=== PATIENT | female | born 1945 | race Caucasian/White ===

== ENCOUNTER 2017-01-16 00:46 | Inpatient (IN) | payer MEDICARE ==
[2017-01-16] VITALS (19 sets, daily range): BP systolic 98–115; BP diastolic 53–86; PULSE 61–91; RESP 13–25; TEMP 97.4–98.6; O2SAT 93–100
[2017-01-16] MEDS ORDERED: SODIUM CHLOR 0.9% 1000 ML INJ 1,000 ML IV ONE (01:16)
[2017-01-16] MEDS ORDERED: NITROGLYCERIN 0.4 MG SL 25 TABS/BTL SL STA (01:16)
[2017-01-16] MEDS ORDERED: HEPARIN SODIUM - IV 10,000 UNITS/10 ML VIAL IV STA (01:16)
[2017-01-16] MEDS ORDERED: ASPIRIN 81 MG CHEW TAB PO STA (01:16)
[2017-01-16] MEDS ORDERED: ONDANSETRON HCL 4 MG/2 ML VIAL ONE ×2 (01:24→02:41)
--- NOTE | 2017-01-16 01:28 | PD ---
HPI Chief Complaint: Chest Pain Time Seen by Provider: 01:18 Travel History International Travel<30 days: No Contact w/Intl Traveler<30days: No Traveled to known affect area: No History of Present Illness HPI The patient is a 71-year-old female with no known history of heart disease who complains of a heaviness in her substernal region beginning approximately 9 PM tonight. The pain is constant. The patient also states she has had indigestion sometime after lunch which has persisted. She does have nausea, diaphoresis and shortness of breath and she has a unusual sensation in the bottom of her mouth but no other radiation of pain. She does not have any history of elevated cholesterol, hypertension, diabetes and she does not smoke. [facility] Social History Tobacco Use: No Allergies-Medications (Allergen,Severity, Reaction): Coded Allergies: No Known Allergies (Unverified , 01/16/17) Review of Systems Except as stated in HPI: all other systems reviewed are Neg Physical Exam Narrative GENERAL: The patient is alert, oriented 3, extremely anxious and moderate to severe distress with her chest discomfort. Her vital signs are normal. SKIN: Focused skin assessment warm/dry. HEAD: Atraumatic. Normocephalic. EYES: Pupils equal and round. No scleral icterus. No injection or drainage. ENT: No nasal bleeding or discharge. Mucous membranes pink and moist. NECK: Trachea midline. No JVD. CARDIOVASCULAR: Regular rate and rhythm. No murmur appreciated. RESPIRATORY: No accessory muscle use. Clear to auscultation. Breath sounds equal bilaterally. I cannot reproduce the patient's pain by pressing on the chest wall. GASTROINTESTINAL: Abdomen soft, non-tender, nondistended. Hepatic and splenic margins not palpable. MUSCULOSKELETAL: No obvious deformities. No clubbing. No cyanosis. No edema. NEUROLOGICAL: Awake and alert. No obvious cranial nerve deficits. Motor grossly within normal limits. Normal speech. PSYCHIATRIC: Appropriate mood and affect; insight and judgment normal. Data Data Orders Troponin I (01/16/17 01:16) Ckmb (Isoenzyme) Profile (01/16/17 01:16) Complete Blood Count With Diff (01/16/17 01:16) Basic Metabolic Panel (Bmp) (01/16/17 01:16) Magnesium (Mg) (01/16/17 01:16) Calcium (01/16/17 01:16) Prothrombin Time / Inr (Pt) (01/16/17 01:16) Act Partial Throm Time (Ptt) (01/16/17 01:16) B-Type Natriuretic Peptide (01/16/17 01:16) Chest, Single Ap (01/16/17 01:16) Electrocardiogram (01/16/17 01:16) Oxygen Administration (01/16/17 01:16) Iv Access Insert/Monitor (01/16/17:16) Oximetry (01/16/17 01:16) Sodium Chlor 0.9% 1000 Ml Inj (Ns 1000 M (01/16/17 01:16) Sodium Chloride 0.9% Flush (Ns Flush) (01/16/17 01:30) Aspirin Chew (Aspirin Chew) (01/16/17:16) Nitroglycerin Sl (Nitrostat Sl) (01/16/17 01:16) Nitroglycerin-Dextrose Inj (Nitroglyceri (01/16/17 01:30) Heparin Inj (Heparin Inj) (01/16/17 01:16) MDM Medical Decision Making Medical Screen Exam Complete: Yes Emergency Medical Condition: Yes Medical Record Reviewed: Yes Interpretation(s) The EKG shows ST elevation in leads V1, V2 and reciprocal depression in 2-3 aVF Differential Diagnosis Acute myocardial infarction, pericarditis, ventricular aneurysm, Narrative Course The patient has an acute myocardial infarction, she has ST elevation in leads V1 , V2 with reciprocal depression in 2-3 and aVF. Physician Communication Physician Communication I discussed the patient with Dr. Ponce, the patient is a STEMI alert and will be transferred at [facility]. Diagnosis Primary Impression: ST segment elevation myocardial infarction (STEMI) of anterolateral wall, subsequent to initial episode of care Admitting Information Admitting Physician Requests: Admit Ben Mendenhall MD Jan 16, 2017 01:28
[2017-01-16] MEDS ORDERED: SODIUM CHLORIDE 0.9% FLUSH 10 ML FLUSH IVF PRN (01:30)
[2017-01-16] MEDS ORDERED: NITROGLYCERIN-DEXTROSE INJ 250 ML IV SCH (01:30)
[2017-01-16 01:31] LABS: AUTOMATED NEUTROPHIL # 5.1 TH/MM3 (1.8-7.7); BASOPHIL % 0.5 % (0.0-2.0); EOSINOPHIL # 0.3 TH/MM3 (0-0.4); EOSINOPHIL % 3.6 % (0.0-4.0); HEMATOCRIT 40.7 % (35.0-46.0); LYMPH % 31.9 % (9.0-44.0); LYMPHOCYTE # 2.8 TH/MM3 (1.0-4.8); MEAN CELL VOLUME 84.8 FL (80.0-100.0); MEAN CORPUSCULAR HEMOGLOBIN 28.6 PG (27.0-34.0); MEAN CORPUSCULAR HGB CONC 33.8 % (32.0-36.0); MONO % 6.2 % (0.0-8.0); NEUT % 57.8 % (16.0-70.0); PLATELET COUNT 212 TH/MM3 (150-450); RED CELL DISTRIBUTION WIDTH 12.4 % (11.6-17.2); WHITE BLOOD COUNT 8.7 TH/MM3 (4.0-11.0)
[2017-01-16 01:32] LABS: HEMO FLAGS DIFF FINAL
[2017-01-16 01:39] LABS: POTASSIUM 3.8 MEQ/L (3.5-5.1)
[2017-01-16 01:42] LABS: BICARBONATE 26.3 MEQ/L (21.0-32.0); MAGNESIUM 2.3 MG/DL (1.5-2.5)
[2017-01-16 01:43] LABS: APTT (PATIENT) 24.1 SEC (24.3-30.1); INTERNATIONAL NORMALIZED RATIO 0.9 RATIO; PROTHROMBIN TIME - PATIENT 10.4 SEC (9.8-11.6)
[2017-01-16] MEDS ORDERED: HEPARIN-NS/PF INJ 500 ML ONE (01:54)
--- NOTE | 2017-01-16 02:00 | RADRPT ---
EXAM DATE/TIME: 01/16/2017 01:19 [place] COMPARISON: No previous studies available for comparison. INDICATIONS : Chest pain. Stemi alert. MEDICAL HISTORY : Unable to obtain. SURGICAL HISTORY : Unable to obtain. ENCOUNTER: Initial ACUITY: 1 day PAIN SCORE: 10/10 LOCATION: Bilateral chest FINDINGS: A single frontal view of the chest demonstrates diffuse acinar densities in both lungs suggesting pul monary edema. No definite peribronchial thickening. No focal areas of consolidation seen. The hear t is normal in size. Both hemidiaphragms well delineated. CONCLUSION: Diffuse bilateral acinar densities suggest pulmonary edema. Eder Randhawa MD on January 16, 2017 at 1:58 Board Certified Radiologist. This report was verified electronically.
[2017-01-16] MEDS ORDERED: MIDAZOLAM HCL 2 MG/2 ML VIAL ONE ×2 (02:09→02:41)
[2017-01-16] MEDS ORDERED: BIVALIRUDIN 250 MG VIAL ONE ×2 (02:18→02:54)
[2017-01-16] MEDS ORDERED: TICAGRELOR 90 MG TAB PO ONE ×2 (02:38→03:00)
[2017-01-16] MEDS ORDERED: NALOXONE HCL 0.4 MG/ML AMP ONE (02:42)
[2017-01-16] MEDS ORDERED: FLUMAZENIL 1 MG/10 ML VIAL ONE (02:42)
[2017-01-16] MEDS ORDERED: BIVALIRUDIN INJ 250 MG in SODIUM CHLORIDE 0.9% INJ 50 ML IV SCH (02:57)
[2017-01-16] MEDS ORDERED: ONDANSETRON HCL 4 MG/2 ML VIAL IV PRN (03:00)
[2017-01-16] MEDS ORDERED: ATROPINE SULFATE 1 MG/ML VIAL IV PRN (03:00)
[2017-01-16] MEDS ORDERED: MISC INFORMATION XX ONE (03:00)
--- NOTE | 2017-01-16 03:13 | CATHPROC ---
[email or web address] HIS Report Study Information Study Number Admission Scheduled Start Study Start [id number] Jan 16 2017 12:46AM 01/16/2017 Jan 16 2017 1:51AM [place] [facility] Cardiac Catheterization Admit Source Facility Department Emergency department [facility] Equipment Operator Physician and Clinical Staff Initial MD Bustillos, Endy Beef Pluck Trimmer Kris Patel,PARMJIT Other cathlab, cathlab Recorder Margarette Hung,ACCOUNTING SUPERVISOR TECH2 Scrub Dominic Manuel RCIS(BS) X-Ray Johnnie Jaeger,RT(R) Procedures Performed Procedure Location (Site) Vessel Name Coronary Angiograms LCA Left Coronary Coronary Angiograms RCA Right Coronary Drug Eluting Inflatio LAD Prox Left Coronary L Heart Cath LV Gram-hand inj. LV LV Ventricle PTCA LAD Prox Left Coronary Wire insertion Fem Art (right) Femoral Art Equipment Time Title Clerk Automobile Description Size Mfg Part Number Used/Scraped PERCLOSE, PRO GLIDE CLOSER 02:38 [employer] FR 6 [id number] *[id number] Used DEVICE PERCLOSE, PRO GLIDE CLOSER 02:38 [employer] FR 6 [id number] *[id number] Used DEVICE TRANSDUCER, TRUWAVE [id number] 02:13 MURDOCK DENISE * Used W/STOCKCOCK *[id number]- INTRODUCER SET, 02:13 [employer]. FR 5 SC-NT-U-SST Used MICROPUNCTURE, STIFFENED *[id number] *[id number] *[id number] 02:13 [employer] INDUSTRIES PACK, CCL CUSTOM * Used *[id number] 02:26 MEDTRONIC BALLOON, 2.5 X 12MM EUPHORA 12MM Used *[id number] STENT, 2.5 18 RESOLUTE [id number] 02:28 MEDTRONIC 2.5 18 Used INTEGRITY RX *[id number] STENT, 2.5 8 RESOLUTE [id number] 02:35 MEDTRONIC 2.5 8 Used INTEGRITY RX *[id number] 02:27 [employer] MEDICAL 30 SONIA INDEFLATOR Used *[id number] 02:13 [employer] MEDICAL WIRE, 3MMJ .035 180CM 180CM Used *[id number] 02:13 NAMIC MANIFOLD, 4 PORT * Used *[id number] 02:13 NYCOMED OMNIPAQUE, 350 MG, 150ML 150ML [id number] Used [id number] 02:13 [employer]A MEDICAL BLANKET,WARM AIR CCL * Used *[id number] 02:13 TERUMO MEDICAL SHEATH, FR5 TERUMO (10CM) FR 5 [id number] Used 02:14 TERUMO MEDICAL SHEATH, FR6 TERUMO (10CM) FR 6 [id number] Used WIRE, RUNTHROUGH NS FLOPPY [id number] 02:22 TERUMO MEDICAL 180CM Used .014 180CM *[id number] WIRE, RUNTHROUGH NS FLOPPY [id number] 02:23 TERUMO MEDICAL 180CM Used .014 180CM *[id number] Equipment Model, Serial, Lot Number and Expiration Data Description Model Number Serial Number Lot Number Expiration Date STENT, 2.5 18 RESOLUTE [id number] 05-10-2018 INTEGRITY RX STENT, 2.5 8 RESOLUTE [id number] 09-21-2018 INTEGRITY RX History: Allergies Allergy Reaction No Known Allergies History: Symptoms/Diagnosis Selection Items Angina-unstable SOB History: Other Current Smoker No Labs Hgb (g/dl) Hct (%) RBC (MIL/MM3) WBC (l/cumm) Platelets (thousands) 11.60-17.00 35.00-51.00 4.00-5.90 4.00-11.00 150.00-450.00 13.7 40.7 4.8 8.7 212 Glucose (mg/dl) BUN (mg/dl) 74.00-106.00 7.00-18.00 117 27 Na (meq/l) K (meq/l) Cl (meq/l) CO2 (mmol/L) Ca (mg/dl) 136.00-145.00 3.50-5.10 98.00-107.00 21.00-32.00 8.50-10.10 145 3.8 109 26.3 9.3 PT (sec) PTT (sec) INR (PTT:PT) 9.80-11.60 24.30-30.10 0.90-1.10 10.4 10.4 0.9 Troponin I (ng/ml) 0.02-0.05 0.02 Medication Medication Total Dose (Bolus/Oral) Medication Total Dosage/Unit 1% XYLOCAINE 20 mL ANGIOMAX BOLUS 12 mL BRILINTA 180 mg FENTANYL 50 mcg NARCAN 0.4 mg OXYGEN 2 l/min ROMAZICON IV 0.2 mg VERSED 1 mg ZOFRAN 4 mg Medications (Bolus/Oral) Medication Time Given Dosage/Unit Administered By Reason VERSED 01/16/2017 2:10:11 AM 1 mg Kirs Patel 1 mg VERSED given in lab by Kris Patel RN in Left Antecubital via Peripheral IV. Ordered by Endy Bernstein. FENTANYL 01/16/2017 2:11:12 AM 25 mcg Kris Patel 25 mcg FENTANYL given in lab by Kris Patel RN in Left Antecubital via Peripheral IV. Ordered by Endy Bustillos. 1% XYLOCAINE 01/16/2017 2:12:45 AM 20 mL Endy Bustillos 20 mL 1% XYLOCAINE given in lab by Endy Bustillos in Right Groin via Subcutaneous. Ordered by Endy Bernstein. ROMAZICON IV 01/16/2017 2:15:29 AM 0.2 mg Kris Patel 0.2 mg ROMAZICON IV given in lab by Kris Patel RN in Right Antecubital via Peripheral IV. Ordere d by Endy Bustillos. NARCAN 01/16/2017 2:16:33 AM 0.4 mg Kris Patel 0.4 mg NARCAN given in lab by Kris Patel RN via Peripheral IV. Ordered by Endy Bustillos. OXYGEN 01/16/2017 2:18:16 AM 2 l/min Kris Patel 2 l/min OXYGEN given in lab by Kris Patel RN via Nasal. Ordered by Endy Bustillos. ANGIOMAX BOLUS 01/16/2017 2:22:08 AM 12 mL Kris Patel 12 mL ANGIOMAX BOLUS given in lab by Kris Patel RN in Right Antecubital via Peripheral IV. Order ed by Endy Bustillos. FENTANYL 01/16/2017 2:25:53 AM 25 mcg Kris Patel 25 mcg FENTANYL given in lab by Kris Patel RN in Left Antecubital via Peripheral IV. Ordered by Endy Bustillos. ZOFRAN 01/16/2017 2:41:38 AM 4 mg Kris Patel 4 mg ZOFRAN given in lab by Kris Patel RN in Right Antecubital via Central IV. Ordered by Endy Gonzales. BRILINTA 01/16/2017 2:56:03 AM 180 mg Kris Patel 180 mg BRILINTA given in lab by Kris Patel, PARMJIT. Ordered by Endy Bustillos. Medication (Drip) Medication Time Given Dosage/Unit Concentration/Unit Diluent (ml) Solution ANGIOMAX DRIP 01/16/2017 2:24:10 AM 1.75 mg/kg/hr 250 mg 50 NaCl .9 1.75 mg/kg/hr ANGIOMAX DRIP given in lab by Kris Patel RN in Right Antecubital via Peripheral IV . Pump/Drip Flow = 27.76 ml/hr using NaCl .9 with a concentration of 250 mg in 50 ml. Ordered by Endy Bustillos. IV Solutions 01/16/2017 2:07:31 AM 0 mL (IV) 500 NaCl .9 IV Solutions given in lab by Kris Patel RN in Left Antecubital via Peripheral IV. Pump/Drip Flow = 20 ml/hr using NaCl .9. Ordered by Endy Bustillos. Initial Case Assessment Cardiovascular HR NIBP 75 128/85 Edema Present Skin color Skin None Normal Warm Dry Neurological State Oriented to time-place- Alert Moves all extremities person Respiration - General Respiration Rate SpO2 (%) (B/min) 13 95 Chronological Log Time Study Chronological Log 2:00:24 Patient arrived via Bed. 2:00:26 Consent signed by the physician and the patient and verified by the [facility] Equipment Operator staff. 2:00:27 Patient Name, D.O.B, / Armband Verified By R.N. 2:00:28 Pre-op and post- op instructions given; patient acknowledges understanding of instructions. Vitals capture started with the following parameters, Patient=Adult, Interval=5 min, Initial Pre dsult=506 mmHg, 2:05:41 Deflation Rate=5 mmHg 2:06:16 HR=67 bpm, UBXW=578/85 mmhg, SpO2=97.0 %, Resp=13 B/min, Pain=8, Joshua=10, Leonard=2 2:07:23 Patient has been NPO for More than 6Hrs. 2:07:24 no Skin Breakdown- 2:07:26 Patient Warmer Placed on the Table. 2:07:27 Disposable Defibrillator Pads Placed On Patient. 2:07:29 Ariel Prominences Protected 2:07:30 A # 20 IV was noted in the Antecubital (right). Grade = 0 2:07:31 A # 20 IV was noted in the Antecubital (left). Grade = 0 IV Solutions given in lab by Kris Patel RN in Left Antecubital via Peripheral IV. Pump/Drip Flow = 20 ml/hr using 2:07:31 NaCl .9. Ordered by Endy Bustillos. 2:07:31 History and physical on the chart or being dictated. Assessment: Initial Case, HR=75 BPM, MPCG=332/85 mmhg, Edema=None, Color=Normal, Skin = Warm, Dr y 2:07:32 Neurological: State=Alert, Ox3, ALCANTAR Respiration: Resp=13 B/min, SpO2=95 % 2:08:08 Bilateral groins prepped with 2% chlorhexidine, and with a 3 min. waiting time. 2:08:19 HR=86 bpm, RLYO=160/74 mmhg, SpO2=95.0 %, Resp=12 B/min, Pain=8, Joshua=10, Leonard=2 2:09:40 Reference ECG taken 2:10:11 1 mg VERSED given in lab by Kris Patel, RN in Left Antecubital via Peripheral IV. Ordere d by Endy Bustillos. 2:10:18 HR=66 bpm, JVPA=377/78 mmhg, SpO2=96.0 %, Resp=16 B/min, Pain=8, Joshua=10, Leonard=2 Time Out. Correct patient, correct procedure,correct physician, ,power injector loaded or not lo aded with contrast with 2:11:03 surgical team present. Time Out Concurred by MD, individual staff and CLINICAL ABSTRACTOR in procedure 2:11:05 Case Start 2:11:12 25 mcg FENTANYL given in lab by Kris Patel RN in Left Antecubital via Peripheral IV. Or dered by Endy Bustillos. 2:12:04 Pressure channel 1 zeroed. 2:12:17 HR=76 bpm, KMUK=919/88 mmhg, SpO2=98.0 %, Resp=12 B/min, Pain=8, Joshua=10, Leonard=2 20 mL 1% XYLOCAINE given in lab by Endy Bustillos in Right Groin via Subcutaneous. Ordered by Tressa, 2:12:45 Endy. 2:12:52 Access site was Right Femoral Artery. A INTRODUCER SET, MICROPUNCTURE, STIFFENED FR 5 was advanced into the Fem Art (right) using the Modified 2:13:15 Seldinger technique. A SHEATH, FR6 TERUMO (10CM) FR 6 was exchanged in the Fem Art (right). This was necessary in ord er to achieve 2:13:21 vascular hemostasis. 2:14:20 HR=81 bpm, RZPV=543/75 mmhg, SpO2=87.0 %, Resp=13 B/min 2:14:20 An injection in the Fem Art (right) was made through the SHEATH, FR6 TERUMO (10CM) FR 6. 2:14:34 A JR 4.0 INFINITI CATHETER FR 6 was advanced over a wire. contrast was used for injections. 0.2 mg ROMAZICON IV given in lab by Kris Patel RN in Right Antecubital via Peripheral IV. O rdered by Tressa, 2:15:29 Endy. 2:16:19 HR=80 bpm, VGMO=742/74 mmhg, SpO2=83.0 %, Resp=15 B/min, Pain=8, Joshua=10, Leonard=2 Recorded Pressure: LV, HR=80, Condition=Condition 1 2:16:19 (Left Ventricle) LV 125/21/28 2:16:33 0.4 mg NARCAN given in lab by Kris Patel, PARMJIT via Peripheral IV. Ordered by Elaine Bustillos edro. 2:16:33 The LV was manually injected with 10 cc's and visualized. OMNIPAQUE, 350 MG, 150ML 150ML use d. Recorded Pressure: LV, Ao, HR=74, Condition=Condition 1 2:16:40 (Left Ventricle) LV 129/22/35, (Aorta) Ao 127/79/101 2:17:28 The RCA was injected and visualized at various angles. OMNIPAQUE, 350 MG, 150ML 150ML used. 2:17:40 Catheter was removed A XB 3.5 GUIDE CATHETER FR 6 was advanced over a wire. OMNIPAQUE, 350 MG, 150ML 150ML was used f or 2:17:41 injections. 2:18:15 HR=81 bpm, GTVV=445/80 mmhg, SpO2=87.0 %, Resp=13 B/min, Pain=8, Joshua=10, Leonard=2 2:18:16 2 l/min OXYGEN given in lab by Kris Patel, PARMJIT via Nasal. Ordered by Ponce-Ruy Loro. 2:19:37 The LCA was injected and visualized at various angles. OMNIPAQUE, 350 MG, 150ML 150ML used. Recorded Pressure: Ao, HR=76, Condition=Condition 1 2:19:46 (Aorta) Ao 98/53/71 2:20:18 HR=78 bpm, BYLB=723/82 mmhg, SpO2=96.0 %, Resp=17 B/min, Pain=8, Joshua=10, Leonard=2 2:20:24 A WIRE, RUNTHROUGH NS FLOPPY .014 180CM 180CM was inserted via Fem Art (right). 12 mL ANGIOMAX BOLUS given in lab by Kris Patel, PARMJIT in Right Antecubital via Peripheral IV. Ordered by Ponce- 2:22:08 Wally, Endy. 2:22:17 HR=72 bpm, YAGS=407/80 mmhg, SpO2=96.0 %, Resp=16 B/min, Pain=8, Joshua=10, Leonard=2 2:22:26 Interventional wire has crossed the lesion 2:23:33 A WIRE, RUNTHROUGH NS FLOPPY .014 180CM 180CM was inserted via Fem Art (right). 1.75 mg/kg/hr ANGIOMAX DRIP given in lab by Kris Patel, RN in Right Antecubital via Peripher al IV. Pump/Drip Flow 2:24:10 = 27.76 ml/hr using NaCl .9 with a concentration of 250 mg in 50 ml. Ordered by Terri Bustillos 2:24:18 HR=73 bpm, KGEY=706/83 mmhg, SpO2=97.0 %, Resp=15 B/min, Pain=8, Joshua=10, Leonard=2 2:25:53 25 mcg FENTANYL given in lab by Kris Patel RN in Left Antecubital via Peripheral IV. Or dered by Endy Bustillos. A BALLOON, 2.5 X 12MM EUPHORA 12MM was inserted over WIRE, RUNTHROUGH NS FLOPPY .014 180CM 180CM via 2:25:54 the LAD Prox. 2:26:21 HR=70 bpm, CVII=814/72 mmhg, SpO2=97.0 %, Resp=15 B/min, Pain=8, Joshua=10, Leonard=2 A BALLOON, 2.5 X 12MM EUPHORA 12MM over a WIRE, RUNTHROUGH NS FLOPPY .014 180CM 180CM in the LAD 2:26:50 Prox was inflated using a 30 SONIA INDEFLATOR at 10 sonia for 15 sec. 2:27:29 Balloon Removed. A STENT, 2.5 18 RESOLUTE INTEGRITY RX 2.5 18 was advanced through a XB 3.5 GUIDE CATHETER FR 6 o carli a 2:28:10 WIRE, RUNTHROUGH NS FLOPPY .014 180CM 180CM. 2:28:17 Vitals capture stopped. A STENT, 2.5 18 RESOLUTE INTEGRITY RX 2.5 18 was deployed using a 30 SONIA INDEFLATOR at 12 atmosp heres for 2:29:42 20 seconds in the LAD Prox. 2:30:09 Wire removed 2:31:43 Delivery device removed A STENT, 2.5 8 RESOLUTE INTEGRITY RX 2.5 8 was advanced through a XB 3.5 GUIDE CATHETER FR 6 ove r a WIRE, 2:34:02 RUNTHROUGH NS FLOPPY .014 180CM 180CM. A STENT, 2.5 8 RESOLUTE INTEGRITY RX 2.5 8 was deployed using a 30 SONIA INDEFLATOR at 14 atmosphe res for 20 2:35:05 seconds in the LAD Prox. 2:36:32 Delivery device removed 2:36:38 Wire removed 2:36:42 Catheter was removed 2:37:43 Catheter(s) removed without difficulty 2:37:46 PERCLOSE, PRO GLIDE CLOSER DEVICE FR 6 placement in the Fem Art (right) 2:39:51 Case End Vitals capture started with the following parameters, Patient=Adult, Interval=5 min, Initial P faanuwh=197 mmHg, 2:40:44 Deflation Rate=5 mmHg 2:41:17 Sterile dressing applied to site 2:41:18 No case complications noted. 2:41:19 Cine recording checked. 2:41:23 Bedside Report will be given. 2:41:24 HR=78 bpm, VXJP=312/54 mmhg, AeN3=457.0 %, Resp=18 B/min, Pain=8, Joshua=10, Leonard=2 2:41:26 Implantable Device card placed in patient's chart. 2:41:29 Contrast Scanned 2:41:38 4 mg ZOFRAN given in lab by Kris Patel, PARMJIT in Right Antecubital via Central IV. Ordere d by Endy Bustillos. 2:41:42 Vitals capture stopped. 2:42:02 A Left Heart Cath was performed. 2:56:03 180 mg BRILINTA given in lab by Kris Patel, PARMJIT. Ordered by Endy Bustillos. PCI QA completed: Pre-Maury - 2, Post Maury - 3, Type - ~TYPE~, Length - 24 mm, Morphology - ~MO RPHOLOGY~, 2:59:20 Indications - ~INDICATIONS~, Pre-Stenosis - 99% and Post Stenosis - 0%. 3:00:29 PCI QA obtained from Pie Cutter End Study - Contrast Media Used In Study Contrast Total Opened (mL) Total Used (mL) Total Wasted (mL) Omnipaque 130 130 0 End Study - Radiation Exposure Fluoro Time (minutes) 9.6 End Study - Patient Disposition Complications Transferred To Interventional Outcome No Telemetry Bed successful
[2017-01-16] MEDS ORDERED: FUROSEMIDE 40 MG/4 ML VIAL ONE (04:56)
[2017-01-16] MEDS ORDERED: FUROSEMIDE 40 MG/4 ML VIAL IV PUSH ONE (05:00)
--- NOTE | 2017-01-16 06:55 | MB ---
cc: LAMONT BARRAGAN DATE OF CONSULTATION 01/16/2017 DATE OF [address]-segment elevation NC. HISTORY OF PRESENT ILLNESS 72-year-old female with past medical history of hypertension, hyperthyroidism, and osteoarthritis who presented to the emergency department with complaints of acute onset of chest pressure during sleep. The patient reports the pressure is localized on the substernal region and is a pressure sensation nonradiating, associated with nausea, with no vomiting and not relieved by nitroglycerin. EKG in the emergency department revealed acute ST-segment elevation in the anterior leads, thus cardiology has been consulted for emergent PCI. REVIEW OF SYSTEMS Negative except for what is mentioned in HPI. PAST MEDICAL HISTORY Arthritis PAST SURGICAL HISTORY None FAMILY HISTORY Noncontributory ALLERGIES NO KNOWN DRUG ALLERGIES. SOCIAL HISTORY No tobacco, no alcohol. No illicit drug use. EXAMINATION VITAL SIGNS: Temperature 98, respiratory rate 18, pulse 91, blood pressure 103/ 36, O2 sat 100% with two liters nasal cannula. GENERAL: Awake, alert and oriented x3 in no acute distress. NECK: No JVD. No carotid bruits. HEART: Regular rate and rhythm. No rubs or gallops appreciated. LUNGS: Clear to auscultation bilaterally. No wheezes or rhonchi or rales. EXTREMITIES: No cyanosis or edema. Pulses throughout. DATA CBC hemoglobin 13, hematocrit 40, platelet count now 212, INR 0.9. Sodium 145, potassium 3.8, BUN 27, creatinine 1.1. BNP was 162. First set of troponins less as 0.02. EKG sinus rhythm with anterior ST elevation and reciprocal changes in the inferior leads. Chest x-ray, pulmonary edema. ASSESSMENT/PLAN 72-year-old female with cardiac risk factors that include age, hypertension, obesity who presented to the emergency department with an ST-segment elevation NC. She remains hemodynamically stable, however with ongoing chest pain. At this time, the recommendation will be to take her immediately to the cardiac laborer driver for primary PCI in the setting of a STEMI. The risks and benefits of left heart cath/PCI including but not limited to neurovascular trauma, infection , bleeding, acute kidney injury, stroke, emergent bypass surgery and have been explained to the patient. The patient understands the risks and she is willing to proceed. Thank you for the opportunity to participate in the care of this patient. Further management to be determined by the left heart cath. MD PRINCESS Brown/FLETCHER /2:09 AM /6:37 AM MTDMarta
--- NOTE | 2017-01-16 07:08 | MA ---
cc: LAMONT BARRAGAN DATE 01/16/2017 DATE OF 1945 PROCEDURE PERFORMED 1. Left heart catheterization 2. Selective right and left coronary angiography. 3. Left ventriculogram 4. Successful PCI to the proximal LAD INDICATION Anterior ST-segment elevation HI APPROACH Right transradial PROCEDURE DESCRIPTION Consent signed. The patient was taken emergently to the cardiac laborer hoisting for primary PCI in the setting of A STEMI. The right groin was prepped and draped in sterile fashion. Using 1% lidocaine for local anesthesia and a micropuncture kit, a 6-Samoan sheath was inserted into the right common femoral artery. Selective right common femoral artery angiography was performed to confirm position of the sheath. Then selective right and left coronary angiography was performed with a JR-4 diagnostic catheter and an XB 3.5 guide. Angiography was taken in multiple views. JR-4 diagnostic catheter was introduced into the ventricle over a wire. This was followed by pressure recordings, left ventriculography and pullback. We identified a culprit lesion of the STEMI at the proximal LAD. Angiomax was given for IV anticoagulation. The vessel was wired with a run-through wire. This was followed by predilation with a 2.5 x 12 and deployment of two drug-eluting stents, one a 2.5 x 18 and another one 2.5 x 8. The stent were postdilated with a stent balloon. Final angiographic views revealed good stent apposition and expansion with MARKO-III flow. The patient tolerated the procedure well without complications. Estimated blood loss less than 30 cc. Total contrast used 75 cc. The right groin access site was closed with a Perclose device. The patient was given aspirin and Brilinta after the procedure. RESULTS LEFT VENTRICLE The left ventricular pressure was 129/22 with an LVEDP of 35. The aortic pressure was 98/53 with a mean of 71. There was no gradient upon pullback from the left ventricle to the aorta. Left ventriculogram revealed hypokinesis of the anterior wall with an estimated ejection fraction of 35-40%. ANGIOGRAPHIC RESULTS 1. Right coronary artery. The right coronary is a dominant vessel. It its mid segment it has a 60% lesion, distally a 20% lesion. However, it has MARKO-III flow and no significant blockages. The PDA is patent with MARKO-III flow as well as the posterolateral branch. 2. The left main is short with nonobstructive coronary artery disease. 3. The LAD has a thrombus present in its proximal segment. The vessel has MARKO- I flow and 99% narrowing. The reminder of the vessel is mildly calcified. It tapers to a small vessel at the mid segment. It has a prominent diagonal vessel , however this one is also small and has nonobstructive coronary artery disease. 4. The left circumflex has minimal luminal irregularities, so for the most part it is patent with MARKO-III flow nonobstructive coronary artery disease. It is giving off one prominent OM branch which is patent with MARKO-III flow and nonobstructive coronary artery disease. CONCLUSION 1. Successful PCI to proximal LAD in the setting of a STEMI. 2. Elevated LVEDP. 3. LV systolic dysfunction. RECOMMENDATIONS The patient will be admitted to the CCU for post-cath care. Angiomax will be continued for the next four hours. She will be on aspirin and Brilinta as well as beta-blockers, statins, MO inhibitor as tolerated by blood pressure. She will need a 2 D Echocardiogram in the morning. MD PRINCESS Brown/FLETCHER /2:49 AM /6:57 AM ADA
[2017-01-16] MEDS: LISINOPRIL 5 MG TAB PO SCH ×2 (08:08→09:00)
[2017-01-16] MEDS: TICAGRELOR 90 MG TAB PO SCH ×2 (08:08→22:12)
[2017-01-16] MEDS: ASPIRIN 81 MG CHEW TAB PO SCH (08:08)
[2017-01-16] MEDS: METOPROLOL TARTRATE 25 MG TAB PO SCH ×2 (08:08→22:12)
[2017-01-16] MEDS ORDERED: PHENYLEPHRINE HCL 10 MG/ML VIAL ONE ×2 (09:15→09:18)
[2017-01-16] MEDS ORDERED: IOHEXOL 350 MG/ML 100 ML BTL (for Cath Lab) OTHER ONE (10:33)
[2017-01-16] MEDS ORDERED: IOHEXOL 350 MG/ML 50 ML BTL (for Cath Lab) OTHER ONE (10:33)
--- NOTE | 2017-01-16 14:06 | EKG ---
Date Performed: 01/16/2017 Time Performed: 09:50:00 PTAGE: 71 years EKG: Sinus bradycardia Nonspecific T wave changes Abnormal ECG COMPARED TO PRIOR ELECTROCARDIOGR AM, Septal infarct pattern is no longer present. ST segment depressions have resolved and T-wave inv ersions are now present. PREVIOUS TRACING : 01/16/2017 01.28 DOCTOR: Adam Chapman Interpretating Date/Time 01/16/2017 14:04:13
--- NOTE | 2017-01-16 15:41 | EKG ---
Date Performed: 01/16/2017 Time Performed: 01:28:13 PTAGE: 71 years EKG: Sinus rhythm LOW QRS VOLTAGE IN PRECORDIAL LEADS SEPTAL MYOCARDIAL INFARCTION ABNORMAL ECG NO PREVIOUS TRACING DOCTOR: Endy Bustillos Interpretating Date/Time 01/16/2017 15:39:43
--- NOTE | 2017-01-16 15:41 | EKG ---
Date Performed: 01/16/2017 Time Performed: 00:55:54 PTAGE: 71 years EKG: Sinus rhythm WITH OCCASIONAL SUPRAVENTRICULAR PREMATURE COMPLEXES LOW QRS VOLTAGE IN PRECORDIAL LEADS POSSIBLE RI GHT VENTRICULAR CONDUCTION DELAY SEPTAL MYOCARDIAL INFARCTION ACUTE NC NO PREVIOUS TRACING DOCTOR: Endy Bustillos Interpretating Date/Time 01/16/2017 15:40:27
--- NOTE | 2017-01-16 15:58 | ECHRPT ---
Indication: CONCLUSIONS The left ventricular systolic function is mildly reduced with an estimated ejection fraction in the range of 45- 50%. Hypokinetic mid-anterior wall motion. Hypokinetic mid-anterior septal wall motion. Akinetic apical a nterior wall. [id number] mitral valve regurgitation. There is mild to moderate tricuspid valve regurgitation. Mild pulmonary valve regurgitation. BP: / HR: 60 Rhythm: Sinus MEASUREMENTS (Male / Female) Normal Values Technical Quality:Good 2D ECHO LV Diastolic Diameter PLAX 4.2 cm 4.2 - 5.9 / 3.9 - 5.3 cm LV Systolic Diameter PLAX 3.2 cm IVS Diastolic Thickness 1.1 cm 0.6 - 1.0 / 0.6 - 0.9 cm LVPW Diastolic Thickness 1.1 cm 0.6 - 1.0 / 0.6 - 0.9 cm LV Relative Wall Thickness 0.5 RV Internal Dim ED PLAX 2.2 cm LVOT Diameter 1.7 cm M-MODE Aortic Root Diameter MM 2.3 cm LA Systolic Diameter MM 3.6 cm LA Ao Ratio MM 1.6 AV Cusp Separation MM 1.6 cm DOPPLER AV Peak Velocity 126.0 cm/s AV Peak Gradient 6.4 mmHg LVOT Peak Velocity 86.4 cm/s LVOT Peak Gradient 3.0 mmHg AV Area Cont Eq pk 1.6 cm MR Peak Velocity 238.0 cm/s MR Peak Gradient 22.7 mmHg Mitral E Point Velocity 80.5 cm/s Mitral A Point Velocity 74.0 cm/s Mitral E to A Ratio 1.1 LV E' Lateral Velocity 6.5 cm/s Mitral E to LV E' Lateral Ratio 12.3 LV E' Septal Velocity 5.5 cm/s Mitral E to LV E' Septal Ratio 14.7 TR Peak Velocity 284.0 cm/s TR Peak Gradient 32.3 mmHg PV Peak Velocity 80.1 cm/s PV Peak Gradient 2.6 mmHg FINDINGS LEFT VENTRICLE Normal left ventricular size. Wall thickness is measured at the upper limits of normal. The left ventricular systolic function is mildly reduced with an estimated ejection fraction in the range of 45- 50%. Hypokinetic mid-anterior wall motion. Hypokinetic mid-anterior septal wall motion. Akinetic apical anterior wall. RIGHT VENTRICLE Normal right ventricular size and systolic function. LEFT ATRIUM The left atrial size is normal. RIGHT ATRIUM The right atrial size is normal. ATRIAL SEPTUM The interatrial septum not well visualized. AORTA The aortic root and proximal ascending aorta are normal in size on limited imaging. MITRAL VALVE [id number] mitral valve regurgitation. AORTIC VALVE Trileaflet aortic valve. No aortic valve stenosis or regurgitation. TRICUSPID VALVE There is mild to moderate tricuspid valve regurgitation. The estimated pulmonary arterial pressure is 42 mmHg. PULMONARY VALVE Mild pulmonary valve regurgitation. VESSELS The inferior vena cava is normal in size. PERICARDIUM No pericardial effusion. Daniel Yepez DO (Electronically Signed) Final Date:16 January 2017 15:56
--- NOTE | 2017-01-16 16:09 | PD.CONS ---
HPI Service [facility] Consult Requested By Dr. Ponce Reason for Consult medical management Primary Care Physician Unknown Diagnoses: History of Present Illness This is a 71-year-old female past history migraine who presented with chest pain. Patient stated that yesterday night when she was laying in bed she felt like an elephant was sitting on her chest. She stated that she try to sit up hoping that pain was improved but it did not improve. Patient did have some indigestion the day before. She stated that she only had emesis which can't emergency department. Otherwise denies any nausea. Positive for diuresis at the time of occurrence. Patient was seen in emergency department down to have STEMI so had emergent cardiac catheterization done. Patient stated that after the procedure she feels great. Denies any chest pain , short his breathing, palpation, lightheadedness/dizziness. [facility] consulted for medical management. Review of Systems Constitutional: DENIES: Diaphoretic episodes, Fatigue, Fever, Weight gain, Weight loss, Chills, Dizziness, Change in appetite, Night Sweats Endocrine: DENIES: Abnorml menstrual pattern, Heat/cold intolerance, Polydipsia , Polyuria, Polyphagia Eyes: DENIES: Blurred vision, Diplopia, Eye inflammation, Eye pain, Vision loss , Photosensitivity, Double Vision Ears, nose, mouth, throat: DENIES: Tinnitus, Hearing loss, Vertigo, Nasal discharge, Oral lesions, Throat pain, Hoarseness, Ear Pain, Running Nose, Epistaxis, Sinus Pain, Toothache, Odynophagia Respiratory: DENIES: Apneas, Cough, Snoring, Wheezing, Hemoptysis, Sputum production, Shortness of breath Cardiovascular: DENIES: Chest pain, Palpitations, Syncope, Dyspnea on Exertion , PND, Lower Extremity Edema, Orthopnea, Claudication Gastrointestinal: DENIES: Abdominal pain, Black stools, Bloody stools, Constipation, Diarrhea, Nausea, Vomiting, Difficulty Swallowing, Anorexia Genitourinary: DENIES: Abnormal vaginal bleeding, Dysmenorrhea, Dyspareunia, Sexual dysfunction, Urinary frequency, Urinary incontinence, Urgency, Hematuria , Dysuria, Nocturia, Vaginal discharge Musculoskeletal: DENIES: Joint pain, Muscle aches, Stiffness, Joint Swelling, Back pain, Neck pain Integumentary: DENIES: Abnormal pigmentation, Pruritus, Rash, Nail changes, Breast masses, Breast skin changes, Nipple discharge Hematologic/lymphatic: DENIES: Bruising, Lymphadenopathy Neurologic: DENIES: Abnormal gait, Headache, Localized weakness, Paresthesias, Seizures, Speech Problems, Tremor, Poor Balance Psychiatric: DENIES: Anxiety, Confusion, Mood changes, Depression, Hallucinations, Agitation, Suicidal Ideation, Homicidal Ideation, Delusions Past Family Social History Allergies: Coded Allergies: No Known Allergies (Unverified , 01/16/17) Past Medical History Migraines Past Surgical History Right knee surgery Bilateral shoulder surgery Carpal tunnel release Reported Medications Patient is not on any home medication. Active Ordered Medications Current Medications Sodium Chloride (NS 1000 ml Inj) 1,000 ml @ 0 mls/hr Q0M ONCE IV Last administered on 01/16/17 01:29; Start 01/16/17 at 01:16; Stop 01/16/17 at 01:19 ; Status DC Sodium Chloride (NS Flush) 2 ml UNSCH PRN IVF FLUSH AFTER USING IV ACCESS; Start 01/16/17 at 01:30 Aspirin (Aspirin Chew) 324 mg NOW STAT PO Last administered on 01/16/17 01:26 ; Start 01/16/17 at 01:16; Stop 01/16/17 at 01:19; Status DC Nitroglycerin 0.4 mg 0.4 mg NOW STAT SL Last administered on 01/16/17 01:30; Start 01/16/17 at 01:16; Stop 01/16/17 at 01:19; Status DC Nitroglycerin/ Dextrose (Nitroglycerin-Dextrose Inj) 250 ml @ 0 mls/hr TITRATE IV ; Start 01/16/17 at 01:30 Heparin Sodium (Porcine) (Heparin Inj) 4,800 units NOW STAT IV Last administered on 01/16/17 01:27; Start 01/16/17 at 01:16; Stop 01/16/17 at 01:19 ; Status DC Ondansetron HCl 4 mg 4 mg STK-MED ONCE .ROUTE Last administered on 01/16/17 01 :25; Start 01/16/17 at 01:24; Stop 01/16/17 at 01:25; Status DC Heparin Sodium/ Sodium Chloride (Heparin-NS/Pf Inj) 500 ml @ As Directed STK- MED ONCE .ROUTE ; Start 01/16/17 at 01:54; Stop 01/16/17 at 01:55; Status DC Midazolam HCl (Versed Inj) 2 mg STK-MED ONCE .ROUTE Last administered on 02:09; Start 01/16/17 at 02:09; Stop 01/16/17 at 02:10; Status DC Fentanyl Citrate (fentaNYL INJ) 100 mcg STK-MED ONCE .ROUTE Last administered on 01/16/17 02:09; Start 01/16/17 at 02:09; Stop 01/16/17 at 02:10; Status DC Bivalirudin (Angiomax Inj) 250 mg STK-MED ONCE .ROUTE Last administered on 01/16 02:18; Start 01/16/17 at 02:18; Stop 01/16/17 at 02:19; Status DC Ticagrelor (Brilinta) 180 mg STK-MED ONCE PO Last administered on 01/16/17 02: 38; Start 01/16/17 at 02:38; Stop 01/16/17 at 02:39; Status DC Ondansetron HCl (Zofran Inj) 4 mg STK-MED ONCE .ROUTE Last administered on 01/16 02:41; Start 01/16/17 at 02:41; Stop 01/16/17 at 02:42; Status DC Midazolam HCl (Versed Inj) 2 mg STK-MED ONCE .ROUTE ; Start 01/16/17 at 02:41; Stop 01/16/17 at 02:42; Status DC Flumazenil (Romazicon Inj) 1 mg STK-MED ONCE .ROUTE Last administered on 02:15; Start 01/16/17 at 02:42; Stop 01/16/17 at 02:43; Status DC Naloxone HCl (Narcan Inj) 0.4 mg STK-MED ONCE .ROUTE Last administered on 02:15; Start 01/16/17 at 02:42; Stop 01/16/17 at 02:43; Status DC Bivalirudin (Angiomax Inj) 250 mg STK-MED ONCE .ROUTE ; Start 01/16/17 at 02:54 ; Stop 01/16/17 at 02:55; Status DC Aspirin (Aspirin Chew) 81 mg DAILY PO Last administered on 01/16/17 08:08; Start 01/16/17 at 09:00 Ticagrelor (Brilinta) 180 mg NOW ONCE PO ; Start 01/16/17 at 03:00; Stop at 03:06; Status DC Ticagrelor 90 mg 90 mg BID PO Last administered on 01/16/17 08:08; Start 01/16 at 09:00 Bivalirudin/ Sodium Chloride (Angiomax Inj/NS Inj) 50 ml @ 0 mls/hr Q0M IV ; Start 01/16/17 at 02:57; Stop 01/16/17 at 06:56; Status DC Miscellaneous Information 1 ONCE ONCE XX ; Start 01/16/17 at 03:00; Stop at 03:07; Status DC Atropine Sulfate (Atropine Inj) 0.5 mg UNSCH PRN IV VAGAL REPONSE; Start at 03:00 Ondansetron HCl (Zofran Inj) 4 mg Q4H PRN IV NAUSEA Last administered on 09:41; Start 01/16/17 at 03:00 Metoprolol Tartrate (Lopressor) 12.5 mg BID PO Last administered on 01/16/17 08:08; Start 01/16/17 at 09:00 Lisinopril (Prinivil) 5 mg DAILY PO ; Start 01/16/17 at 09:00 Atorvastatin Calcium (Lipitor) 10 mg HS PO ; Start 01/16/17 at 21:00 Furosemide (Lasix Inj) 40 mg STK-MED ONCE .ROUTE ; Start 01/16/17 at 04:56; Stop 01/16/17 at 04:57; Status DC Furosemide (Lasix Inj) 40 mg NOW ONCE IV PUSH Last administered on 01/16/17 04:59; Start 01/16/17 at 05:00; Stop 01/16/17 at 05:01; Status DC Phenylephrine HCl (Neosynephrine Inj) 10 mg STK-MED ONCE .ROUTE ; Start at 09:15; Stop 01/16/17 at 09:16; Status DC Phenylephrine HCl (Neosynephrine Inj) 10 mg STK-MED ONCE .ROUTE ; Start at 09:18; Stop 01/16/17 at 09:19; Status DC Iohexol (OMNIPAQUE 350 INJ (Candy Separator Hard)) 100 ml STK-MED ONCE OTHER ; Start at 10:33; Stop 01/16/17 at 10:34; Status DC Iohexol (OMNIPAQUE 350 INJ (Candy Separator Hard)) 50 ml STK-MED ONCE OTHER ; Start at 10:33; Stop 01/16/17 at 10:34; Status DC Family History Father at age of 66 from [place]. Mother had history of blood clots at the age of 54. Brother had [place] in his 50s. Social History Patient lives at home with her . Denies alcohol, tobacco, or illicit drug use. Physical Exam Vital Signs Vital Signs Date Time Temp Pulse Resp B/P Pulse Ox O2 Delivery O2 Flow Rate FiO2 01/16/17 12:00 98.1 63 13 109/55 97 01/16/17 08:00 67 01/16/17 08:00 98.0 62 13 108/53 100 01/16/17 07:57 97 Nasal Cannula 2.00 01/16/17 07:56 100 Nasal Cannula 1.00 01/16/17 07:00 Nasal Cannula 2.00 01/16/17 06:00 68 01/16/17 04:00 73 01/16/17 04:00 97.4 73 25 105/63 100 01/16/17 03:20 97 Nasal Cannula 3.00 01/16/17 01:41 78 98/74 99 01/16/17 01:10 97 2.00 01/16/17 00:50 97.4 91 18 103/86 100 01/16/17 00:50 91 Physical Exam GENERAL: This is a well-nourished, well-developed patient, in no apparent distress. SKIN: No rashes, ecchymoses or lesions. Cool and dry. HEAD: Atraumatic. Normocephalic. No temporal or scalp tenderness. EYES: Pupils equal round and reactive. Extraocular motions intact. No scleral icterus. No injection or drainage. ENT: Nose without bleeding, purulent drainage or septal hematoma. Throat without erythema, tonsillar hypertrophy or exudate. Uvula midline. Airway patent. NECK: Trachea midline. No JVD or lymphadenopathy. Supple, nontender, no meningeal signs. CARDIOVASCULAR: Regular rate and rhythm without murmurs, gallops, or rubs. RESPIRATORY: Clear to auscultation. Breath sounds equal bilaterally. No wheezes , rales, or rhonchi. GASTROINTESTINAL: Abdomen soft, non-tender, nondistended. No hepato-splenomegaly , or palpable masses. No guarding. MUSCULOSKELETAL: Extremities without clubbing, cyanosis, or edema. No joint tenderness, effusion, or edema noted. No calf tenderness. Negative Homans sign bilaterally. NEUROLOGICAL: Awake and alert. Cranial nerves II through XII intact. Motor and sensory grossly within normal limits. Five out of 5 muscle strength in all muscle groups. Normal speech. Laboratory Laboratory Tests Test 01/16/17 01/16/17 01:00 03:20 White Blood Count 8.7 Red Blood Count 4.80 Hemoglobin 13.7 Hematocrit 40.7 Mean Corpuscular Volume 84.8 Mean Corpuscular Hemoglobin 28.6 Mean Corpuscular Hemoglobin 33.8 Concent Red Cell Distribution Width 12.4 Platelet Count 212 Mean Platelet Volume 9.7 Neutrophils (%) (Auto) 57.8 Lymphocytes (%) (Auto) 31.9 Monocytes (%) (Auto) 6.2 Eosinophils (%) (Auto) 3.6 Basophils (%) (Auto) 0.5 Neutrophils # (Auto) 5.1 Lymphocytes # (Auto) 2.8 Monocytes # (Auto) 0.5 Eosinophils # (Auto) 0.3 Basophils # (Auto) 0.0 CBC Comment DIFF FINAL Differential Comment Prothrombin Time 10.4 Prothromb Time International 0.9 Ratio Activated Partial 24.1 Thromboplast Time Sodium Level 145 Potassium Level 3.8 Chloride Level 109 Carbon Dioxide Level 26.3 Anion Gap 10 Blood Urea Nitrogen 27 Creatinine 1.10 Estimat Glomerular Filtration 49 Rate Random Glucose 117 Calcium Level 9.3 Magnesium Level 2.3 Total Creatine Kinase 69 Troponin I 0.02 B-Type Natriuretic Peptide 162 Nasal Screen MRSA (PCR) MRSA NOT DETECTED Result Diagram: 01/16/179901/16/1799 Imaging Last Impressions Chest X-Ray 01/16/17 0116 Signed Impressions: Service Date/Time: December 01:19 - CONCLUSION: Diffuse bilateral acinar densities suggest pulmonary edema. Eder Randhawa MD Assessment and Plan Assessment and Plan STEMI -STEMI alert called. -s/p PCI to proximal LAD on 01/16. -Being managed I medical field representative. Patient is on aspirin, bile into, beta nick, statin and Juan inhibitor. Pending report of 2-D echo. History of migraines -Asymptomatic Code Status full Discussed Condition With Patient can be downgraded to [facility] but there are no beds available. If patient continued do well tomorrow she can be discharge if okay by the medical field representative. Chio Dias MD Jan 16, 2017 16:09
[2017-01-16] MEDS: ATORVASTATIN 10 MG TAB PO SCH (22:12)
[2017-01-17] VITALS (30 sets, daily range): BP systolic 69–109; BP diastolic 24–68; PULSE 61–92; RESP 16–19; TEMP 97.6–98.4; O2SAT 95–98
[2017-01-17 05:34] LABS: BICARBONATE 27.9 MEQ/L (21.0-32.0); POTASSIUM 3.4 MEQ/L (3.5-5.1)
[2017-01-17 05:36] LABS: HDL CHOLESTEROL 37.3 MG/DL (40.0-60.0)
[2017-01-17 05:39] LABS: AUTOMATED NEUTROPHIL # 5.8 TH/MM3 (1.8-7.7); BASOPHIL % 0.3 % (0.0-2.0); EOSINOPHIL # 0.1 TH/MM3 (0-0.4); EOSINOPHIL % 1.4 % (0.0-4.0); HEMATOCRIT 40.2 % (35.0-46.0); HEMO FLAGS DIFF FINAL; LYMPH % 20.6 % (9.0-44.0); LYMPHOCYTE # 1.7 TH/MM3 (1.0-4.8); MEAN CELL VOLUME 84.9 FL (80.0-100.0); MEAN CORPUSCULAR HEMOGLOBIN 28.6 PG (27.0-34.0); MEAN CORPUSCULAR HGB CONC 33.7 % (32.0-36.0); MONO % 7.2 % (0.0-8.0); NEUT % 70.5 % (16.0-70.0); PLATELET COUNT 162 TH/MM3 (150-450); RED BLOOD COUNT 4.73 MIL/MM3 (4.00-5.30); RED CELL DISTRIBUTION WIDTH 13.2 % (11.6-17.2); WHITE BLOOD COUNT 8.3 TH/MM3 (4.0-11.0)
--- NOTE | 2017-01-17 08:26 | EKG ---
Date Performed: 01/17/2017 Time Performed: 06:28:36 PTAGE: 71 years EKG: Sinus rhythm Prolonged QT interval Marked ST-T wave changes Generalized low QRS voltages Abnormal ECG COMPARED TO PRIOR ELECTROCARDIOGRAM, ST-T wave changes are more marked and QT interval has increased. PREVIOUS TRACING : 01/16/2017 09.50 DOCTOR: Adam Chapman Interpretating Date/Time 01/17/2017 08:26:12
[2017-01-17] MEDS: ASPIRIN 81 MG CHEW TAB PO SCH (08:39)
[2017-01-17] MEDS: METOPROLOL TARTRATE 25 MG TAB PO SCH ×2 (08:39→21:04)
[2017-01-17] MEDS: TICAGRELOR 90 MG TAB PO SCH ×2 (08:40→21:04)
[2017-01-17] MEDS ORDERED: LISI-519 PO (11:28)
[2017-01-17] MEDS ORDERED: BUTA1CAP2 PO (11:28)
[2017-01-17] MEDS ORDERED: ASPI81CH25 PO (11:28)
[2017-01-17] MEDS ORDERED: LIPI10TA PO (11:28)
[2017-01-17] MEDS ORDERED: METO25TA3 PO (11:28)
[2017-01-17] MEDS ORDERED: BRIL90TA PO (11:28)
--- NOTE | 2017-01-17 11:28 | HHI.DCPOC ---
Discharge Care Plan Diagnosis: (1) ST segment elevation myocardial infarction (STEMI) of anterolateral wall, subsequent to initial episode of care Goals to Promote Your Health * To prevent worsening of your condition and complications * To maintain your health at the optimal level Directions to Meet Your Goals Take your medications as prescribed Follow your dietary instruction Follow activity as directed Keep your appointments as scheduled Take your immunizations and boosters as scheduled If your symptoms worsen call your PCP, if no PCP go to Urgent Care Center or Emergency Room Smoking is Dangerous to Your Health. Avoid second hand smoke Call the 24-hour hour crisis hotline for domestic abuse at Chio Dias MD Jan 17, 2017 11:28
[2017-01-17] MEDS ORDERED: ACETAMIN 325 MG/BUTALBITAL 50 MG/CAFFEINE 40 MG TAB PO PRN (11:30)
[2017-01-17] MEDS ORDERED: ACETAMIN 325 MG/BUTALBITAL 50 MG/CAFFEINE 40 MG TAB PO ONE (11:45)
[2017-01-17] MEDS: LISINOPRIL 5 MG TAB PO SCH (11:46)
--- NOTE | 2017-01-17 12:56 | PD.CARD.PN ---
Subjective Subjective Remarks Doing well, no complaints No chest pain, no shortness of breath Objective Medications Current Medications Medications (Trade) Dose Ordered Sig/Jordan Route Start Time Stop Time Status Last Admin Sodium Chloride 2 ml 2 ml UNSCH PRN IVF 01/16/17 01:30 (Nitroglycerin-Dextrose Inj) 250 ml @ 0 mls/hr TITRATE IV 01/16/17 01:30 (Aspirin Chew) 81 mg DAILY PO 01/16/17 09:00 01/17/17 08:39 (Brilinta) 90 mg BID PO 01/16/17 09:00 01/17/17 08:40 (Atropine Inj) 0.5 mg UNSCH PRN IV 01/16/17 03:00 (Zofran Inj) 4 mg Q4H PRN IV 01/16/17 03:00 01/16/17 09:41 (Lopressor) 12.5 mg BID PO 01/16/17 09:00 01/17/17 08:39 (Prinivil) 5 mg DAILY PO 01/16/17 09:00 01/17/17 11:46 (Lipitor) 10 mg HS PO 01/16/17 21:00 01/16/17 22:12 (Fioricet 325-50-40) 1 tab Q6H PRN PO 01/17/17 11:30 Vital Signs / I&O Vital Signs Date Time Temp Pulse Resp B/P Pulse Ox O2 Delivery O2 Flow Rate FiO2 01/17/17 12:44 109/68 01/17/17 12:40 77 01/17/17 11:20 98.1 67 16 108/60 97 01/17/17 11:00 61 01/17/17 10:00 78 01/17/17 09:00 68 01/17/17 08:00 72 01/17/17 07:33 98.2 72 19 95/57 95 101/52 01/17/17 07:30 96 Room Air 01/17/17 07:30 90 01/17/17 06:40 68 01/17/17 05:30 67 01/17/17 04:40 70 01/17/17 03:34 76 01/17/17 03:15 98.4 74 16 92/51 96 01/17/17 02:00 63 01/17/17 01:00 66 01/17/17 00:00 68 01/16/17 23:40 98.6 74 18 100/57 93 Manual Cuff/Auscultation 01/16/17 23:00 64 01/16/17 22:00 74 01/16/17 21:00 68 01/16/17 20:00 70 01/16/17 19:20 96 Room Air 01/16/17 19:20 70 01/16/17 19:20 98.5 71 16 105/64 96 01/16/17 18:00 70 01/16/17 17:00 72 01/16/17 17:00 98.6 70 20 115/66 98 01/16/17 16:00 98.2 61 14 110/56 93 I/O 01/16/17 01/16/17 01/16/17 01/17/17 01/17/17 01/17/17 07:00 15:00 23:00 07:00 15:00 23:00 Intake Total 90 ml 523 ml 480 ml Output Total 900 ml 2000 ml 200 ml 200 ml Balance -810 ml -1477 ml -200 ml 280 ml Intake Oral 10 ml 480 ml 480 ml IV Total 80 ml 43 ml Output Urine Total 700 ml 2000 ml 200 ml 200 ml Emesis 200 ml # Bowel Movements 0 1 Physical Exam GENERAL: NAD, AAOx3 SKIN: Warm and dry. HEAD: Atraumatic. Normocephalic. EYES: Pupils equal and round. No scleral icterus. No injection or drainage. ENT: No nasal bleeding or discharge. Mucous membranes pink and moist. NECK: Trachea midline. No JVD. CARDIOVASCULAR: Regular rate and rhythm. RESPIRATORY: No accessory muscle use. Clear to auscultation. Breath sounds equal bilaterally. GASTROINTESTINAL: Abdomen soft, non-tender, nondistended. Hepatic and splenic margins not palpable. MUSCULOSKELETAL: Extremities without clubbing, cyanosis, or edema. No obvious deformities. Right femoral no hematoma/bruit NEUROLOGICAL: Awake and alert. No obvious cranial nerve deficits. Motor grossly within normal limits. Five out of 5 muscle strength in the arms and legs. Normal speech. PSYCHIATRIC: Appropriate mood and affect; insight and judgment normal. Laboratory Laboratory Tests Test 01/17/17 04:28 White Blood Count 8.3 TH/MM3 Red Blood Count 4.73 MIL/MM3 Hemoglobin 13.6 GM/DL Hematocrit 40.2 % Mean Corpuscular Volume 84.9 FL Mean Corpuscular Hemoglobin 28.6 PG Mean Corpuscular Hemoglobin 33.7 % Concent Red Cell Distribution Width 13.2 % Platelet Count 162 TH/MM3 Mean Platelet Volume 9.5 FL Neutrophils (%) (Auto) 70.5 % Lymphocytes (%) (Auto) 20.6 % Monocytes (%) (Auto) 7.2 % Eosinophils (%) (Auto) 1.4 % Basophils (%) (Auto) 0.3 % Neutrophils # (Auto) 5.8 TH/MM3 Lymphocytes # (Auto) 1.7 TH/MM3 Monocytes # (Auto) 0.6 TH/MM3 Eosinophils # (Auto) 0.1 TH/MM3 Basophils # (Auto) 0.0 TH/MM3 CBC Comment DIFF FINAL Differential Comment Sodium Level 142 MEQ/L Potassium Level 3.4 MEQ/L Chloride Level 106 MEQ/L Carbon Dioxide Level 27.9 MEQ/L Anion Gap 8 MEQ/L Blood Urea Nitrogen 18 MG/DL Creatinine 1.13 MG/DL Estimat Glomerular Filtration 48 ML/MIN Rate Random Glucose 112 MG/DL Calcium Level 8.7 MG/DL Triglycerides Level 136 MG/DL Cholesterol Level 193 MG/DL LDL Cholesterol 129 MG/DL HDL Cholesterol 37.3 MG/DL Cholesterol/HDL Ratio 5.17 RATIO Assessment and Plan Problem List: (1) ST segment elevation myocardial infarction (STEMI) of anterolateral wall, subsequent to initial episode of care (2) CAD (coronary artery disease) (3) Migraine Assessment and Plan 1) Anterior STEMI s/p DESx2 (2.5x18, 2.5x8) to LAD Con't ASA/Brilinta/BB/MO-I Blood pressure borderline low, if concern over night then would stop MO-I Currently around 30 hours out from STEMI, would plan to watch over night and if stable in the morning can discharge, if concern please call covering physician with questions Will follow up with cardiology in [place] 2) EF 45-50% on echo 3) Previously on propranolol for migraines, will try metoprolol but if further migraines will follow up with Cardio/Neuro/PCP before changing back to propranolol Daniel Yepez DO Jan 17, 2017 12:56
--- NOTE | 2017-01-17 13:45 | HHI.PR ---
Subjective Remarks Follow-up for STEMI Patient denies any chest pain, palpitation, lightheadedness dizziness. No acute events over telemetry. Patient stated she has her usual migraine headache. Patient takes Fiorinal with codeine. Objective Vitals Vital Signs Date Time Temp Pulse Resp B/P Pulse Ox O2 Delivery O2 Flow Rate FiO2 01/17/17 13:11 71 01/17/17 12:44 109/68 01/17/17 12:40 77 01/17/17 11:20 98.1 67 16 108/60 97 01/17/17 11:00 61 01/17/17 10:00 78 01/17/17 09:00 68 01/17/17 08:00 72 01/17/17 07:33 98.2 72 19 95/57 95 101/52 01/17/17 07:30 96 Room Air 01/17/17 07:30 90 01/17/17 06:40 68 01/17/17 05:30 67 01/17/17 04:40 70 01/17/17 03:34 76 01/17/17 03:15 98.4 74 16 92/51 96 01/17/17 02:00 63 01/17/17 01:00 66 01/17/17 00:00 68 01/16/17 23:40 98.6 74 18 100/57 93 Manual Cuff/Auscultation 01/16/17 23:00 64 01/16/17 22:00 74 01/16/17 21:00 68 01/16/17 20:00 70 01/16/17 19:20 96 Room Air 01/16/17 19:20 70 01/16/17 19:20 98.5 71 16 105/64 96 01/16/17 18:00 70 01/16/17 17:00 72 01/16/17 17:00 98.6 70 20 115/66 98 01/16/17 16:00 98.2 61 14 110/56 93 I/O 01/16/17 01/16/17 01/16/17 01/17/17 01/17/17 01/17/17 07:00 15:00 23:00 07:00 15:00 23:00 Intake Total 90 ml 523 ml 480 ml Output Total 900 ml 2000 ml 200 ml 200 ml Balance -810 ml -1477 ml -200 ml 280 ml Intake Oral 10 ml 480 ml 480 ml IV Total 80 ml 43 ml Output Urine Total 700 ml 2000 ml 200 ml 200 ml Emesis 200 ml # Bowel Movements 0 1 Result Diagram: 01/17/1742701/17/17427 Objective Remarks GENERAL: in NAD CARDIOVASCULAR: Regular rate and rhythm without murmurs, gallops, or rubs. RESPIRATORY: Breath sounds equal bilaterally. No accessory muscle use. GASTROINTESTINAL: Abdomen soft, non-tender, nondistended. MUSCULOSKELETAL: No cyanosis, or edema. BACK: Nontender without obvious deformity. No CVA tenderness. Medications and IVs Current Medications Sodium Chloride (NS 1000 ml Inj) 1,000 ml @ 0 mls/hr Q0M ONCE IV Last administered on 01/16/17 01:29; Start 01/16/17 at 01:16; Stop 01/16/17 at 01:19 ; Status DC Sodium Chloride (NS Flush) 2 ml UNSCH PRN IVF FLUSH AFTER USING IV ACCESS; Start 01/16/17 at 01:30 Aspirin (Aspirin Chew) 324 mg NOW STAT PO Last administered on 01/16/17 01:26 ; Start 01/16/17 at 01:16; Stop 01/16/17 at 01:19; Status DC Nitroglycerin 0.4 mg 0.4 mg NOW STAT SL Last administered on 01/16/17 01:30; Start 01/16/17 at 01:16; Stop 01/16/17 at 01:19; Status DC Nitroglycerin/ Dextrose (Nitroglycerin-Dextrose Inj) 250 ml @ 0 mls/hr TITRATE IV ; Start 01/16/17 at 01:30 Heparin Sodium (Porcine) (Heparin Inj) 4,800 units NOW STAT IV Last administered on 01/16/17 01:27; Start 01/16/17 at 01:16; Stop 01/16/17 at 01:19 ; Status DC Ondansetron HCl 4 mg 4 mg STK-MED ONCE .ROUTE Last administered on 01/16/17 01 :25; Start 01/16/17 at 01:24; Stop 01/16/17 at 01:25; Status DC Heparin Sodium/ Sodium Chloride (Heparin-NS/Pf Inj) 500 ml @ As Directed STK- MED ONCE .ROUTE ; Start 01/16/17 at 01:54; Stop 01/16/17 at 01:55; Status DC Midazolam HCl (Versed Inj) 2 mg STK-MED ONCE .ROUTE Last administered on 02:09; Start 01/16/17 at 02:09; Stop 01/16/17 at 02:10; Status DC Fentanyl Citrate (fentaNYL INJ) 100 mcg STK-MED ONCE .ROUTE Last administered on 01/16/17 02:09; Start 01/16/17 at 02:09; Stop 01/16/17 at 02:10; Status DC Bivalirudin (Angiomax Inj) 250 mg STK-MED ONCE .ROUTE Last administered on 01/16 02:18; Start 01/16/17 at 02:18; Stop 01/16/17 at 02:19; Status DC Ticagrelor (Brilinta) 180 mg STK-MED ONCE PO Last administered on 01/16/17 02: 38; Start 01/16/17 at 02:38; Stop 01/16/17 at 02:39; Status DC Ondansetron HCl (Zofran Inj) 4 mg STK-MED ONCE .ROUTE Last administered on 01/16 02:41; Start 01/16/17 at 02:41; Stop 01/16/17 at 02:42; Status DC Midazolam HCl (Versed Inj) 2 mg STK-MED ONCE .ROUTE ; Start 01/16/17 at 02:41; Stop 01/16/17 at 02:42; Status DC Flumazenil (Romazicon Inj) 1 mg STK-MED ONCE .ROUTE Last administered on 02:15; Start 01/16/17 at 02:42; Stop 01/16/17 at 02:43; Status DC Naloxone HCl (Narcan Inj) 0.4 mg STK-MED ONCE .ROUTE Last administered on 02:15; Start 01/16/17 at 02:42; Stop 01/16/17 at 02:43; Status DC Bivalirudin (Angiomax Inj) 250 mg STK-MED ONCE .ROUTE ; Start 01/16/17 at 02:54 ; Stop 01/16/17 at 02:55; Status DC Aspirin (Aspirin Chew) 81 mg DAILY PO Last administered on 01/17/17 08:39; Start 01/16/17 at 09:00 Ticagrelor (Brilinta) 180 mg NOW ONCE PO ; Start 01/16/17 at 03:00; Stop at 03:06; Status DC Ticagrelor 90 mg 90 mg BID PO Last administered on 01/17/17 08:40; Start 01/16 at 09:00 Bivalirudin/ Sodium Chloride (Angiomax Inj/NS Inj) 50 ml @ 0 mls/hr Q0M IV ; Start 01/16/17 at 02:57; Stop 01/16/17 at 06:56; Status DC Miscellaneous Information 1 ONCE ONCE XX ; Start 01/16/17 at 03:00; Stop at 03:07; Status DC Atropine Sulfate (Atropine Inj) 0.5 mg UNSCH PRN IV VAGAL REPONSE; Start at 03:00 Ondansetron HCl (Zofran Inj) 4 mg Q4H PRN IV NAUSEA Last administered on 09:41; Start 01/16/17 at 03:00 Metoprolol Tartrate (Lopressor) 12.5 mg BID PO Last administered on 01/17/17 08:39; Start 01/16/17 at 09:00 Lisinopril (Prinivil) 5 mg DAILY PO Last administered on 01/17/17 11:46; Start 01/16/17 at 09:00 Atorvastatin Calcium (Lipitor) 10 mg HS PO Last administered on 01/16/17 22:12 ; Start 01/16/17 at 21:00 Furosemide (Lasix Inj) 40 mg STK-MED ONCE .ROUTE ; Start 01/16/17 at 04:56; Stop 01/16/17 at 04:57; Status DC Furosemide (Lasix Inj) 40 mg NOW ONCE IV PUSH Last administered on 01/16/17 04:59; Start 01/16/17 at 05:00; Stop 01/16/17 at 05:01; Status DC Phenylephrine HCl (Neosynephrine Inj) 10 mg STK-MED ONCE .ROUTE ; Start at 09:15; Stop 01/16/17 at 09:16; Status DC Phenylephrine HCl (Neosynephrine Inj) 10 mg STK-MED ONCE .ROUTE ; Start at 09:18; Stop 01/16/17 at 09:19; Status DC Iohexol (OMNIPAQUE 350 INJ (Cooperative Education Coordinator)) 100 ml STK-MED ONCE OTHER ; Start at 10:33; Stop 01/16/17 at 10:34; Status DC Iohexol (OMNIPAQUE 350 INJ (Cooperative Education Coordinator)) 50 ml STK-MED ONCE OTHER ; Start at 10:33; Stop 01/16/17 at 10:34; Status DC Acetaminophen/ Butalbital/ Caffeine (Fioricet 325-50-40) 1 tab Q6H PRN PO HEADACHE; Start 01/17/17 at 11:30 Acetaminophen/ Butalbital/ Caffeine (Fioricet 325-50-40) 1 tab NOW ONCE PO Last administered on 01/17/17t 11:46; Start 01/17/17 at 11:45; Stop 01/17/17 at 11:46; Status DC A/P Assessment and Plan STEMI -STEMI alert called. -s/p PCI to proximal LAD on 01/16. Echo showed EF of 45-50%. Hypo-kinetic of the mid to anterior wall motion and akinetic apical atrial wall. -Being managed by acid crane operator. Patient is on aspirin, Brilinta, beta nick, statin and Juan inhibitor. History of migraines -Patient states she now has her usual migraines. She is taking Fiorinal with codeine at home. Will give her Fioricet since patient is already on aspirin. -Patient is also on propranolol as prophylaxis. Propranolol held secondary to low blood pressure. Patient to follow-up with her PCP in regards to restarting medication or may be considering another medication. Discharge Planning Per acid crane operator if patient continues to remain stable can be discharged tomorrow morning. Chio Dias MD Jan 17, 2017 13:45
[2017-01-17] MEDS: ATORVASTATIN 10 MG TAB PO SCH (21:04)
[2017-01-18] VITALS (9 sets, daily range): BP systolic 87–100; BP diastolic 49–54; PULSE 67–92; RESP 14–16; TEMP 97.1–98.1; O2SAT 96–98
[2017-01-18] MEDS: TICAGRELOR 90 MG TAB PO SCH (08:55)
[2017-01-18] MEDS: ASPIRIN 81 MG CHEW TAB PO SCH (08:55)
--- NOTE | 2017-01-18 09:29 | HHI.DS ---
Discharge Summary Admission Date Jan 16, 2017 at 02:35 Discharge Date: Jan 18, 2017 Admitting Diagnosis STEMI alert (1) CAD (coronary artery disease) ICD Code: I25.10 Diagnosis: Secondary (2) ST segment elevation myocardial infarction (STEMI) of anterolateral wall, subsequent to initial episode of care ICD Code: I21.09 Diagnosis: Principal Procedures Cardiac catheterization Brief History - From Admission This is a 71-year-old female past history migraine who presented with chest pain. Patient stated that yesterday night when she was laying in bed she felt like an elephant was sitting on her chest. She stated that she try to sit up hoping that pain was improved but it did not improve. Patient did have some indigestion the day before. She stated that she only had emesis which can't emergency department. Otherwise denies any nausea. Positive for diuresis at the time of occurrence. Patient was seen in emergency department down to have STEMI so had emergent cardiac catheterization done. Patient stated that after the procedure she feels great. Denies any chest pain , short his breathing, palpation, lightheadedness/dizziness. [facility] consulted for medical management. CBC/BMP: 01/17/17 0428 01/17/17 0428 Significant Findings Laboratory Tests Test 01/16/17 01/17/17 01:00 04:28 Activated Partial 24.1 SEC Thromboplast Time (24.3-30.1) Chloride Level 109 MEQ/L (98-107) Blood Urea Nitrogen 27 MG/DL (7-18) Creatinine 1.10 MG/DL 1.13 MG/DL (0.50-1.00) (0.50-1.00) Estimat Glomerular Filtration 49 ML/MIN (>89) 48 ML/MIN (>89) Rate Random Glucose 117 MG/DL 112 MG/DL (74-106) (74-106) B-Type Natriuretic Peptide 162 PG/ML (0-100) Neutrophils (%) (Auto) 70.5 % (16.0-70.0) Potassium Level 3.4 MEQ/L (3.5-5.1) LDL Cholesterol 129 MG/DL (0-99) HDL Cholesterol 37.3 MG/DL (40.0-60.0) Imaging Last Impressions Chest X-Ray 01/16/17 0116 Signed Impressions: Service Date/Time: December 01:19 - CONCLUSION: Diffuse bilateral acinar densities suggest pulmonary edema. Eder Randhawa MD PE at Discharge GENERAL: Not in distress. CARDIOVASCULAR: Regular rate and rhythm without murmurs, gallops, or rubs. RESPIRATORY: Breath sounds equal bilaterally. No accessory muscle use. GASTROINTESTINAL: Abdomen soft, non-tender, nondistended. MUSCULOSKELETAL: No cyanosis, or edema. BACK: Nontender without obvious deformity. No CVA tenderness. Pt update on day of discharge No chest pain overnight, denies any shortness of breath, dizziness, lightheadedness. Would like to go back on to [place] tomorrow, I told her to delay it by a few days. She will get a slp teacher on Friday and follow-up as soon as possible. Hospital Course This is a 71-year-old female who presented with chest pain, upon ED evaluation, a STEMI alert was called. Cardiology was consulted emergently, patient went for PCI to proximal LAD on 01/16. Echo showed EF of 45-50%. Hypo-kinetic of the mid to anterior wall motion and akinetic apical atrial wall. Patient was placed on aspirin, Brilinta, beta nick, statin and Juan inhibitor. However patient did not tolerate JUAN inhibitor's because of hypotension, JUAN inhibitors was thought. Patient usually had migraines which she takes propranolol for, patient was told that she will be on metoprolol for now. Patient will follow- up with primary care physician on traveling back to [place]. Hospital course was uneventful. Pt Condition on Discharge: Good Discharge Disposition: Discharge Home Discharge Time: > 30 minutes Discharge Instructions DIET: Follow Instructions for: Heart Healthy Diet Activities you can perform: See Additionl Instruction Other Activity Instructions: as directed by slp teacher. Follow up Referrals: Cardiology - [address] Ponce PCP Follow-up - 1 Week New Medications: Mrjivxldsl-Jasidzrhlijse-Vfuelcef-Codeine (Fioricet-Codeine) 43-198-90-30 Mg Cap 1-2 CAP PO Q4H Do not exceed 6 capsules/day. PRN HEADACHE #10 Ref 0 CAP Aspirin (Aspirin Low Strength) 81 Mg Chew 81 MG PO DAILY CAD #30 Ref 0 EA Atorvastatin (Lipitor) 10 Mg Tab 10 MG PO HS CAD #30 Ref 0 TAB Metoprolol Tartrate (Metoprolol Tartrate) 25 Mg Tab 12.5 MG PO BID CAD #60 Ref 0 TAB Ticagrelor (Brilinta) 90 Mg Tab 90 MG PO BID CAD #60 Ref 0 TAB ElkeFlcaa lopez MD Jan 18, 2017 09:29 17 at 03:07; Status DC Atropine Sulfate (Atropine Inj) 0.5 mg UNSCH PRN IV VAGAL REPONSE; Start at 03:00 Ondansetron HCl (Zofran Inj) 4 mg Q4H PRN IV NAUSEA Last administered on 09:41; Start 01/16/17 at 03:00 Metoprolol Tartrate (Lopressor) 12.5 mg BID PO Last administered on 01/17/17 08:39; Start 01/16/17 at 09:00 Lisinopril (Prinivil) 5 mg DAILY PO Last administered on 01/17/17 11:46; Start 01/16/17 at 09:00 Atorvastatin Calcium (Lipitor) 10 mg HS PO Last administered on 01/16/17 22:12 ; Start 01/16/17 at 21:00 Furosemide (Lasix Inj) 40 mg STK-MED ONCE .ROUTE ; Start 01/16/17 at 04:56; Stop 01/16/17 at 04:57; Status DC Furosemide (Lasix Inj) 40 mg NOW ONCE IV PUSH Last administered on 01/16/17 04:59; Start 01/16/17 at 05:00; Stop 01/16/17 at 05:01; Status DC Phenylephrine HCl (Neosynephrine Inj) 10 mg STK-MED ONCE .ROUTE ; Start at 09:15; Stop 01/16/17 at 09:16; Status DC Phenylephrine HCl (Neosynephrine Inj) 10 mg STK-MED ONCE .ROUTE ; Start at 09:18; Stop 01/16/17 at 09:19; Status DC Iohexol (OMNIPAQUE 350 INJ (Sheet Metal Production Worker)) 100 ml STK-MED ONCE OTHER ; Start at 10:33; Stop 01/16/17 at 10:34; Status DC Iohexol (OMNIPAQUE 350 INJ (Sheet Metal Production Worker)) 50 ml STK-MED ONCE OTHER ; Start at 10:33; Stop 01/16/17 at 10:34; Status DC Acetaminophen/ Butalbital/ Caffeine (Fioricet 325-50-40) 1 tab Q6H PRN PO HEADACHE; Start 01/17/17 at 11:30 Acetaminophen/ Butalbital/ Caffeine (Fioricet 325-50-40) 1 tab NOW ONCE PO Last administered on 01/17/17t 11:46; Start 01/17/17 at 11:45; Stop 01/17/17 at 11:46; Status DC Plan A/P Assessment and Plan STEMI -STEMI alert called. -s/p PCI to proximal LAD on 01/16. Echo showed EF of 45-50%. Hypo-kinetic of the mid to anterior wall motion and akinetic apical atrial wall. -Being managed by slp teacher. Patient is on aspirin, Brilinta, beta nick, statin and Juan inhibitor. History of migraines -Patient states she now has her usual migraines. She is taking Fiorinal with codeine at home. Will give her Fioricet since patient is already on aspirin. -Patient is also on propranolol as prophylaxis. Propranolol held secondary to low blood pressure. Patient to follow-up with her PCP in regards to restarting medication or may be considering another medication. Discharge Planning Per slp teacher if patient continues to remain stable can be discharged tomorrow morning. Pt Condition on Discharge: Good Discharge Disposition: Discharge Home Discharge Instructions DIET: Follow Instructions for: Heart Healthy Diet Activities you can perform: See Additionl Instruction Other Activity Instructions: as directed by slp teacher. Flaca Bedoya MD Jan 18, 2017 09:29
[2017-01-18] MEDS: METOPROLOL TARTRATE 25 MG TAB PO SCH (09:32)
== END 2017-01-18 11:35 | disposition home or self-care (01) | DRG 247 ==
LOC: PHED 00:46 → PHEDA 02:35 → N03B 03:13 → HCIS 16:21
PROVIDERS: ADMIT Hospitalist; ATTEND Hospitalist
PROC: 027035Z Dilation of Coronary Artery, One Artery with Two Drug-eluting Intraluminal Devices, Percutaneous Approach (ICD-10-PCS; principal; 2017-01-16)
PROC: 4A023N7 Measurement of Cardiac Sampling and Pressure, Left Heart, Percutaneous Approach (ICD-10-PCS; 2017-01-16)
PROC: B2111ZZ Fluoroscopy of Multiple Coronary Arteries using Low Osmolar Contrast (ICD-10-PCS; 2017-01-16)
PROC: B2151ZZ Fluoroscopy of Left Heart using Low Osmolar Contrast (ICD-10-PCS; 2017-01-16)
PROC: B41F1ZZ Fluoroscopy of Right Lower Extremity Arteries using Low Osmolar Contrast (ICD-10-PCS; 2017-01-16)
DX: I21.02 ST elevation (STEMI) myocardial infarction involving left anterior descending coronary artery (principal); I95.9 Hypotension, unspecified; E05.90 Thyrotoxicosis, unspecified without thyrotoxic crisis or storm; I10 Essential (primary) hypertension; I21.09 ST elevation (STEMI) myocardial infarction involving other coronary artery of anterior wall; I25.10 Atherosclerotic heart disease of native coronary artery without angina pectoris; G43.909 Migraine, unspecified, not intractable, without status migrainosus; M19.90 Unspecified osteoarthritis, unspecified site; Z82.49 Family history of ischemic heart disease and other diseases of the circulatory system
CPT/HCPCS: 51702; 71010; 80048; 80061; 82550; 83735; 83880; 84484; 85025; 85610; 85730; 87641; 92941; 93005; 93306; 93458; 94664; 96374; 96375; C1725; C1760; C1769; C1874; C1887; C1893; G0269; J0583; J1644; J1940; J2250; J2310; J2370; J2405; J3010; J7030; Q9967